=== PATIENT | female | born 1990 | race American Indian/Alaskan Native ===

== ENCOUNTER 2021-12-30 06:07 | Emergency (ER) | payer SELFPAY ==
--- NOTE | 2021-12-30 10:52 | XRay Report ---
XR chest routine 2V INDICATION / CLINICAL INFORMATION: cough and asthma COMPARISON: None available. FINDINGS: SUPPORT DEVICES: None. HEART / MEDIASTINUM: No significant abnormality. LUNGS / PLEURA: Lungs are clear. Costophrenic sulci are sharp. No pneumothorax. ADDITIONAL FINDINGS: No significant additional findings. IMPRESSION: 1. No acute findings. Signer Name: Simon Bean MD Signed: 12/30/2021 10:48 AM Workstation Name: [id number]
--- NOTE | 2021-12-30 11:04 | Emergency Department Report ---
ED Asthma HPI - General Chief Complaint: Adult Asthma Stated Complaint: ASTHMA ATTACK Time Seen by Provider: 12/30/21 09:30 Source: patient Mode of arrival: Ambulatory Limitations: No Limitations - History of Present Illness MD Complaint: wheezing, other -: Gradual Asthma History: childhood onset Severity: mild Context: ran out of meds Associated Symptoms: none - Related Data Current Asthma Therapy: other (primeitene mist) Previous Rx's Medication Instructions Recorded Last Taken Type ALBUTEROL NEB's [Proventil 0.083% 2.5 mg IH TID PRN #30 neb 12/30/21 Unknown Rx NEBS] Albuterol Mdi (or & Nicu Only) 2 puff IH QID PRN #1 inhalation 12/30/21 Unknown Rx [ProAir HFA Inhaler] Montelukast [Singulair] 10 mg PO QPM #14 tablet 12/30/21 Unknown Rx predniSONE [Deltasone] 50 mg PO QDAY #5 tab 12/30/21 Unknown Rx ED Review of Systems ROS: Stated complaint: ASTHMA ATTACK Other details as noted in HPI Comment: All other systems reviewed and negative ED Past Medical Hx - Past Medical History Previous Medical History?: Yes Hx Asthma: Yes - Surgical History Past Surgical History?: No - Social History Smoking Status: Unknown if ever smoked - Medications Home Medications: Home Medications Medication Instructions Recorded Confirmed Last Taken Type ALBUTEROL NEB's [Proventil 0.083% 2.5 mg IH TID PRN #30 neb 12/30/21 Unknown Rx NEBS] Albuterol Mdi (or & Nicu Only) 2 puff IH QID PRN #1 inhalation 12/30/21 Unknown Rx [ProAir HFA Inhaler] Montelukast [Singulair] 10 mg PO QPM #14 tablet 12/30/21 Unknown Rx predniSONE [Deltasone] 50 mg PO QDAY #5 tab 12/30/21 Unknown Rx ED Physical Exam - General Limitations: No Limitations General appearance: alert, in no apparent distress - Head Head exam: Present: atraumatic, normocephalic - Eye Eye exam: Present: normal appearance, PERRL, EOMI Pupils: Present: normal accommodation - ENT ENT exam: Present: normal exam, normal orophraynx, mucous membranes moist - Neck Neck exam: Present: normal inspection - Respiratory Respiratory exam: Present: normal lung sounds bilaterally. Absent: respiratory distress - Cardiovascular Cardiovascular Exam: Present: regular rate, normal rhythm. Absent: systolic murmur, diastolic murmur, rubs, gallop - GI/Abdominal GI/Abdominal exam: Present: soft, normal bowel sounds - Extremities Exam Extremities exam: Present: normal inspection - Back Exam Back exam: Present: normal inspection - Neurological Exam Neurological exam: Present: alert, oriented X3 - Psychiatric Psychiatric exam: Present: normal affect, normal mood - Skin Skin exam: Present: warm, dry, intact, normal color. Absent: rash ED Course Vital Signs 12/30/21 12/30/21 06:10 11:22 Temperature 98.6 F 97.6 F Pulse Rate 87 78 Respiratory 18 14 Rate Blood Pressure 140/89 Blood Pressure 126/74 [Right] O2 Sat by Pulse 100 100 Oximetry ED Medical Decision Making - Radiology Data Radiology results: report reviewed [facility] [address] [place] [address] XRay Report Signed Patient: ERIN COTTER MR#: [id number] : 1990 Acct:[id number] Age/Sex: 31 / F ADM Date: 12/30/21 Loc: ED Attending Dr: Ordering Physician: TERESA LONG Date of Service: 12/30/21 Procedure(s): XR chest routine 2V Accession Number(s): [id number] cc: TERESA LONG Fluoro Time In Minutes: XR chest routine 2V INDICATION / CLINICAL INFORMATION: cough and asthma COMPARISON: None available. FINDINGS: SUPPORT DEVICES: None. HEART / MEDIASTINUM: No significant abnormality. LUNGS / PLEURA: Lungs are clear. Costophrenic sulci are sharp. No pneumothorax. ADDITIONAL FINDINGS: No significant additional findings. IMPRESSION: 1. No acute findings. Signer Name: Simon Bean MD Signed: 12/30/2021 10:48 AM Workstation Name: [id number] Transcribed By: Dictated By: Simon Bean MD Electronically Authenticated By: Simon Bean MD Signed Date/Time: 12/30/211047 DD/ 47 TD/TT: - Medical Decision Making 31 y/o female presents with asthma history requesting mediation refills due to new home causing asthma sympotoms. No active symptoms. suspects mold. stable vitals during this visit. Critical care attestation.: If time is entered above; I have spent that time in minutes in the direct care of this critically ill patient, excluding procedure time. ED Disposition Clinical Impression: Asthma Disposition: HOME / SELF CARE / HOMELESS Is pt being admited?: No Does the pt Need Aspirin: No Condition: Stable Instructions: Asthma (ED) Prescriptions: predniSONE [Deltasone] 50 mg PO QDAY #5 tab Albuterol Mdi (or & Nicu Only) [ProAir HFA Inhaler] 2 puff IH QID PRN #1 inhalation PRN Reason: Shortness Of Breath ALBUTEROL NEB's [Proventil 0.083% NEBS] 2.5 mg IH TID PRN #30 neb PRN Reason: Wheezing Montelukast [Singulair] 10 mg PO QPM #14 tablet Referrals: [facility] [Provider Group] - 3-5 Days
[2021-12-30 11:24] VITALS: BP 126/74
== END 2021-12-30 11:22 | disposition home or self-care (01) ==
LOC: ED 06:07
DX: J45.909 Unspecified asthma, uncomplicated (principal); Z98.890 Other specified postprocedural states; Z79.899 Other long term (current) drug therapy
CPT/HCPCS: 71046; 99283